=== PATIENT | female | born 1995 | race Caucasian/White ===

== ENCOUNTER 2020-04-05 12:31 | Inpatient (IN) | payer BC, MEDICAID ==
[2020-04-11] MEDS ORDERED: RINGERS SOLUTION,LACTATED 1,000 ML IV ONE (08:45)
[2020-04-11] MEDS ORDERED: RINGERS SOLUTION,LACTATED 1,000 ML IV PRN (08:45)
[2020-04-11 09:48] LABS: ABSOLUTE EOSINOPHILS # (AUTO) 0.1 10^3/uL (0.0-0.6); ABSOLUTE LYMPHOCYTES (AUTO) 1.2 10^3/uL (0.5-4.7); ABSOLUTE MONOCYTES (AUTO) 0.7 10^3/uL (0.1-1.4); ABSOLUTE NEUT (AUTO) 6.5 10^3/uL (1.7-8.2); BASOPHILS % (AUTO) 0.3 % (0-2); HEMATOCRIT 29.2 % (36.0-47.0); HEMOGLOBIN 9.9 g/dL (12.0-15.5); LYMPHOCYTES % (AUTO) 14.1 % (13-45); MEAN CORPUSCULAR HEMOGLOBIN 27.5 pg (27.0-33.4); MEAN CORPUSCULAR HGB CONC 33.9 g/dL (32.0-36.0); MEAN CORPUSCULAR VOLUME 81 fl (80-97); MONOCYTES % (AUTO) 8.7 % (3-13); PLATELET COUNT 229 10^3/uL (150-450); RED CELL DISTRIBUTION WIDTH 15.3 % (11.5-14.0); SEGMENTED NEUTROPHILS % (AUTO) 75.9 % (42-78); TOTAL CELLS COUNTED % (AUTO) 100 %; WHITE BLOOD COUNT 8.5 10^3/uL (4.0-10.5)
[2020-04-11] MEDS ORDERED: MISOPROSTOL 0.2 MG TABLET ONE (09:50)
[2020-04-11] MEDS ORDERED: OXYTOCIN 10 UNIT/ML VIAL ONE (09:50)
[2020-04-11] MEDS ORDERED: OXYTOCIN/0.9 % SODIUM CHLORIDE 30 UNIT/500 ML RTUINJ ONE (09:50)
[2020-04-11] MEDS ORDERED: LIDOCAINE 1% INJ-PF (10 MG/ML) 30 ML SDV ONE (09:50)
[2020-04-11 10:01] LABS: APPEARANCE,URINE SLIGHTLY-CLOUDY; BILIRUBIN,URINE NEGATIVE (NEGATIVE); COLOR,URINE YELLOW; GLUCOSE, URINE NEGATIVE (NEGATIVE); KETONES,URINE TRACE mg/dL (NEGATIVE); LEUKOCYTE ESTERASE,URINE SMALL (NEGATIVE); NITRITE,URINE NEGATIVE (NEGATIVE); PROTEIN,URINE NEGATIVE (NEGATIVE); URINE SPECIFIC GRAVITY 1.015; UROBILINOGEN,URINE NEGATIVE mg/dL (<2.0)
[2020-04-11 10:25] LABS: URINE AMPHETAMINES SCREEN NEGATIVE; URINE BARBITURATES SCREEN NEGATIVE; URINE BENZODIAZEPINES SCREEN NEGATIVE; URINE COCAINE SCREEN NEGATIVE; URINE MARIJUANA (THC) SCREEN NEGATIVE; URINE METHADONE SCREEN NEGATIVE; URINE PHENCYCLIDINE SCREEN NEGATIVE
--- NOTE | 2020-04-11 11:13 | Admission Physical ---
Datetime Report Generated by CPN: 04/11/2020 11:12 CURRENT ADMISSION Chief Complaint: Scheduled Induction of Labor Indication for Induction: Postterm Admit Impression : Postterm, Intrauterine ; No Active Labor Admit Plan: Admit to Unit; Initiate Labor Induction Protocol ALLERGIES Medication Allergies: Yes Medication Allergies: Sulfa (Sulfonamide Antibiotics)/SV (04/11/2020) Latex: No Latex Allergies OBSTETRICAL HISTORY EDC: 04/07/2020 00:00 : 1 Para: 0 Term: 0 : 0 SAB: 0 IAB: 0 Ectopic: 0 Livin Cesareans: 0 VBACs: 0 Multiple Births: 0 Gestational Diabetes: No Rh Sensitization: No Incompetent Cervix: No MELISSA: No Infertility: No ART Treatment: No Uterine Anomaly: No IUGR: No Hx Previous C/S: No Macrosomia: No Hx Loss/Stillborn: No PIH: No Hx : No Placenta Previa/Abruption: No Depression/PP Depression: Yes PTL/PROM: No Post Hemorrhage: No Current Procedures: Ultrasound Obstetrical History Comments: G1- current SEE RECORDS Alcohol: No Marijuana : No Cocaine: No Other Illicit Drugs: No Cigarettes: Former Smoker. [id number] MEDICAL HISTORY Diabetes: No Blood Transfusion: No Pulmonary Disease (Asthma, TB): No Breast Disease: No Hypertension: No Supervisor Drying And Softening Surgery: No Heart Disease: No Hosp/Surgery: Yes Autoimmune Disorder: No Anesthetic Complications: No Kidney Disease: No Abnormal Pap Smear: No Neuro/Epilepsy: No Psychiatric Disorders: No Other Medical Diseases: No Hepatitis/Liver Disease: No Significant Family History: No Varicosities/Phlebitis: No Trauma/Violence : No Thyroid Dysfunction: No Medical History Comments: depression, pyelonephritis- 2014, wisdom teeth, INFECTIOUS HISTORY Gonorrhea: No Genital Herpes: No Chlamydia: No Tuberculosis: No Syphilis: No Hepatitis: No HIV/AIDS Exposure: No Rash or Viral Illness: No HPV: No PHYSICAL EXAM General: Normal HEENT: Normal Neurologic: Normal Thyroid: Deferred Heart: Normal Lungs: Normal Breast: Deferred Back: Normal Abdomen: Normal Genitourinary Exam: Normal Extremities: Normal DTRs: Deferred Pelvic Type: Adequate Vital Signs: Reviewed VAGINAL EXAM Dilatation: 4 Effacement: 70 Station: -2 MEMBRANES Membranes: Ruptured Amniotic Fluid Color: Clear FETUS A EGA: 40.4 Monitoring: External US FHR- Baseline: 130 Variability: Minimal - Undetectable to <=5bpm Accelerations: 15X15 Decelerations: None FHR Category: Category I Presentation: Vertex Admit Comment: plans for epidural PLANS FOR LABOR AND DELIVERY Labor and Delivery: None Pain Management: Epidural Feeding Preference: Formula Benefit of Breast Feed Discussed: Yes Circumcision: Yes INFORMED CONSENT Assignment: Ivania Bartholomew MD Signature: with User ID: Tyrel : with User ID: [email or web address]
[2020-04-11] MEDS ORDERED: NALBUPHINE HCL INJ 10 MG/1 ML AMPULE IV ONE (12:39)
[2020-04-11] MEDS ORDERED: PROMETHAZINE HCL INJ 25 MG/1 ML VIAL IV ONE (12:39)
[2020-04-11] MEDS ORDERED: PROMETHAZINE HCL INJ 25 MG/1 ML VIAL ONE (12:41)
[2020-04-11] MEDS ORDERED: NALBUPHINE HCL INJ 10 MG/1 ML AMPULE ONE (12:41)
[2020-04-11] MEDS ORDERED: FENTANYL/BUPIVACAINE/NS/PF 300 MCG/150 ML RTUINJ EPI ONE (13:05)
[2020-04-11] MEDS ORDERED: ROPIVACAINE HCL 0.2% INJ/PF (2 MG/ML) 20 ML SDV ONE (13:05)
[2020-04-11] MEDS ORDERED: EPHEDRINE SULFATE INJ 50 MG/1 ML AMPULE ONE (13:05)
[2020-04-11] MEDS ORDERED: FAMOTIDINE INJ/PF 20 MG/2 ML SDV IV ONE ×2 (18:00→18:01)
[2020-04-11] MEDS ORDERED: ONDANSETRON HCL INJ/PF 4 MG/2 ML SDV ONE (18:19)
[2020-04-11] MEDS ORDERED: AMPICILLIN SOD INJ 2 GM VIAL ONE (21:06)
[2020-04-11] MEDS ORDERED: ACETAMINOPHEN 325 MG TABLET ONE (21:06)
[2020-04-11] MEDS ORDERED: AMPICILLIN SOD INJ 2 GM VIAL IV SCH (21:14)
[2020-04-11] MEDS ORDERED: GENTAMICIN SULFATE INJ 80 MG/2 ML VIAL ONE (21:16)
[2020-04-11] MEDS ORDERED: IBUPROFEN 800 MG TABLET ONE (22:24)
[2020-04-11] MEDS ORDERED: PROMETHAZINE HCL 25 MG TABLET PO PRN (22:37)
[2020-04-11] MEDS ORDERED: DIBUCAINE 1% OINTMENT 28 GM TP PRN (22:37)
[2020-04-11] MEDS ORDERED: GLYCERIN/WITCH HAZEL LEAF 1 EACH MED..WIPE TP PRN (22:37)
[2020-04-11] MEDS ORDERED: PROMETHAZINE HCL 25 MG SUPP.RECT PR PRN (22:37)
[2020-04-11] MEDS ORDERED: MEASLES,MUMPS&RUBELLA VACC/PF 0.5 ML VIAL SUBCUT PRN (22:37)
[2020-04-11] MEDS ORDERED: NA PHOS,M-B/NA PHOS,DI-BA (ADULT) 133 ML ENEMA PR PRN (22:37)
[2020-04-11] MEDS ORDERED: MISOPROSTOL 0.2 MG TABLET PR PRN (22:37)
[2020-04-11] MEDS ORDERED: DIPH/PERTUSS(ACELL)/TETANUS VAC/PF 0.5 ML SYR (>=10YO) IM PRN (22:37)
[2020-04-11] MEDS ORDERED: PROMETHAZINE HCL INJ 25 MG/1 ML VIAL IV PRN (22:37)
[2020-04-11] MEDS ORDERED: ACETAMINOPHEN WITH CODEINE #3 TABLET PO PRN (22:37)
[2020-04-11] MEDS ORDERED: MAGNESIUM HYDROXIDE SUSP 30 ML UDCUP PO PRN (22:37)
[2020-04-11] MEDS ORDERED: DIPHENHYDRAMINE HCL 25 MG CAPSULE PO PRN (22:37)
[2020-04-11] MEDS ORDERED: ZOLPIDEM TARTRATE 5 MG TABLET PO PRN (22:37)
[2020-04-11] MEDS ORDERED: BENZOCAINE/MENTHOL AEROSOL SPRAY 56 ML TOP PRN (22:37)
[2020-04-11] MEDS ORDERED: ACETAMINOPHEN 325 MG TABLET PO PRN (22:37)
[2020-04-11] MEDS ORDERED: PSEUDOEPHEDRINE HCL 30 MG TABLET PO PRN (22:37)
[2020-04-11] MEDS ORDERED: OXYTOCIN/0.9 % SODIUM CHLORIDE 30 UNIT/500 ML RTUINJ IV PRN (22:37)
[2020-04-11] MEDS ORDERED: GENTAMICIN SULFATE INJ 80 MG/2 ML VIAL IV ONE (22:42)
[2020-04-11] MEDS ORDERED: FAMOTIDINE 20 MG TABLET ONE (23:12)
[2020-04-11] MEDS: FAMOTIDINE 20 MG TABLET PO SCH (23:23)
--- NOTE | 2020-04-12 00:25 | Delivery Summary ---
Del Sum A-C Datetime Report Generated by CPN: 04/12/2020 00:24 DELIVERY PERSONNEL DELIVERY PERSONNEL: [id number] Delivery Doctor:: Ivania Bartholomew MD ORNAMENT STAPLER:: Marielos Salcedo CRNA Labor and Delivery Nurse:: Paloma Lara RN Nursery Nurse:: Kamala Brito RN Nursery Nurse:: Quin Sears RN Solar Sales Associate/BILLING ASSOCIATE: Leslie Patton, ST MATERNAL INFORMATION Delivery Anesthesia: Epidural Medications After Delivery: Pitocin 30 Units in 500ml NS/D5W Delivery QBL: 300 Delivery QBL Comment: qbl total 400ml Maternal Complications: Chorioamnionitis; Maternal Fever Provider Comments: VMI delivered in LIANNE presentation with 25sec dystocia due to compound left arm with head. Posterior compound left arm reduced. Shoulders and body delivered immediately after delivery of posterior arm and [place]. infant to maternal abdomen for delayed cord clamping then cord was doubly clamped and cut. Placenta delivered spontaneously intact. True knot noted in cord near baby. FF at U with cytotec 1000mcg per rectum and draining bladder with a straight catheter. 2nd degree perineal laceration repaired in usual fashion. Mother and baby stable upon provider leaving the room LABOR SUMMARY EDC: 04/07/2020 00:00 No. Babies in Womb: 1 Attempted: No Labor Anesthesia: Epidural LABOR INFORMATION Reason for Induction: Post Dates Onset of Labor: 04/11/2020 12:35 Complete Dilatation: 04/11/2020 17:33 Oxytocin: Induction Group B Beta Strep: Negative Antibiotics # of Doses: 1 Antibiotics Time of Last Dose: 04/11/2020 21:14 Name of Antibiotic Given: Ampicillin 2 grams/Gentamycin Steroids Given: None Reason Steroids Not Administered: Not Applicable MEMBRANES Membranes Rupture Method: Artificial Rupture of Membranes: 04/11/2020 11:04 Length of Rupture (hr): 11.12 Amniotic Fluid Color: Clear Amniotic Fluid Amount: Small Amniotic Fluid Odor: None STAGES OF LABOR Stage 1 hr: 4 Stage 1 min: 58 Stage 2 hr: 4 Stage 2 min: 38 Stage 3 hr: 0 Stage 3 min: 5 Total Time in Labor hr: 9 Total Time in Labor min: 41 VAGINAL DELIVERY Laceration #1: Perineal Laceration Extension #1: Second Degree Other Laceration: midline perineal Laceration Repair: Yes Sponge Count Correct: Yes Sharps Count Correct: Yes CSECTION DELIVERY Primary Indication: N/A Secondary Indication: N/A CSection Incidence: N/A Labor: N/A Elective: N/A CSection Incision: N/A BABY A INFORMATION Infant Delivery Date/Time: 04/11/2020 22:11 Method of Delivery: Vaginal Nurse Controlled Delivery: No Born in Route : No : N/A Forceps: N/A Vacuum Extraction: N/A Shoulder Dystocia : No PRESENTATION/POSITION BABY A Presentation: Cephalic Cephalic Presentation: Vertex Vertex Position: Left Occipital Anterior Breech Presentation: N/A PLACENTA INFORMATION BABY A Placenta Delivery Time : 04/11/2020 22:16 Placenta Method of Delivery: Spontaneous Placenta Status: Delivered SCORES BABY A Heart Rate 1 min: >100 bpm Resp Effort 1 min: Good Cry Reflex Irritability 1 min: Cough or Sneeze or Pulls Away Muscle Tone 1 min: Active Motion Color 1 min: Blue/Pale Resuscitation Effort 1 min: Tactile Stimulation SCORE 1 MIN: 8 Heart Rate 5 min: >100 bpm Resp Effort 5 min: Good Cry Reflex Irritability 5 min: Cough or Sneeze or Pulls Away Muscle Tone 5 min: Active Motion Color 5 min: Body [place], Extremities Blue Resuscitation Effort 5 min: Tactile Stimulation SCORE 5 MIN: 9 INFANT INFORMATION BABY A Gestational Age at Delivery: 40.4 Gestational Status: Full Term- 39- 40.6 Weeks Infant Outcome : Liveborn Condition : Stable Infant Sex: Male IDENTIFICATION BABY A Infant Verification Date/Time: 04/11/2020 22:19 ID Band Number: [id number] Mother's Name Verified: Yes RN Verifying Infant: Concepcion Thomas RN Additional Verifying Personnel: K. Chin RN WEIGHT/LENGTH BABY A Birthweight (gm): 4399 Weight (lb): 9 Infant Weight (oz): 11 Length (in): 22.00 Length (cm): 55.88 CORD INFORMATION BABY A No. Cord Vessels: 3 Nuchal Cord : N/A Nuchal Cord- Other: compound hand True Knot: 1 Cord Blood Taken: Yes-For Eval (Mom's Blood Type - or O+) Infant Suction: Mouth; Nose ASSESSMENT BABY A Complications: Decreased Variability Physical Findings at Delivery: Caput Succedaneum; Molding of the Head; Other Physical Findings- Other: Compound left hand; True knot, had stool after delivery Infant Respirations: Appears Normal Skin to Skin: Yes Skin to Skin Time (min): 20 Rail Car Unloader/ALS Called : No Care By: Garrett Sears RN Transferred To: Remains with Mother BABY B INFORMATION : N/A SIGNATURES Signature: with User ID: [email or web address] : I was personally available for consultation and serving as supervising physician for the P.
--- NOTE | 2020-04-12 00:25 | Birth Certificate Data ---
Cert Data Datetime Report Generated by CPN: 04/12/2020 00:24 CERTIFICATE DATA Delivery Provider: Ivania Bartholomew MD (04/11/2020 07:08:Jocelyn Devries RN) 47a. Care: Yes (04/11/2020 07:08:Chloe Alicia RN) 47b. Date of First Visit: 09/21/2019 00:00 (04/11/2020 07:08:Chloe Alicia RN) 47c. Date of Last Visit: 04/10/2020 00:00 (04/11/2020 07:08:Chloe Alicia RN) 47d. Number of Visits: 12 (04/11/2020 07:08:Chloe Alicia RN) 48a. Number of Prev Live Births: 0 (04/11/2020 07:08:Chloe Alicia RN) 48b. Now Livin (04/11/2020 07:08:Chloe Alicia RN) 48c. Live Births Now : 0 (04/11/2020 07:08:QS system process) 48e. Losses: 0 (04/11/2020 07:08:Chloe Alicia RN) RISK FACTORS IN THIS 49a. Diabetes: No (04/11/2020 07:08:Chloe Alicia RN) 49b. Hypertension: No (04/11/2020 07:08:Chloe Alicia RN) 49c. Previous Births: 0 (04/11/2020 07:08:Chloe Alicia RN) 49d. Stillborns: No (04/11/2020 07:08:Chloe Alicia RN) 49d. IUGR: No (04/11/2020 07:08:Vane Faustin RN) 49e. Infertility Treatment: No (04/11/2020 07:08:Vane Faustin RN) 49f. Previous Cesareans: 0 (04/11/2020 07:08:Chloe Alicia RN) Mother's Height 50b. Height Inches: 64 (04/11/2020 09:24:QS system process) Mother's Weight 51a. Pre- Weight (lbs): 101 (04/11/2020 07:08:Chloe Alicia RN) 51b. Weight at Delivery (lbs): 143 (04/11/2020 09:24:QS system process) 52. Dt Last Normal Menses Began: 06/30/2019 00:00 (04/11/2020 07:08:Chloe Alicia RN) Infections Present/Treated 53a. Gonorrhea: No (04/11/2020 07:08:Chloe Alicia RN) Results this Hospital Visit : Negative (04/11/2020 07:08:Chloe Alicia RN) 53b. Syphilis: No (04/11/2020 07:08:Chloe Alicia RN) Results this Hospital Visit: NONREACTIVE (04/11/2020 09:36:QS system process) 53c. Chlamydia: No (04/11/2020 07:08:Chloe Alicia RN) Results this Hospital Visit: Negative (04/11/2020 07:08:Chloe Alicia RN) 53d. Hepatitis B: No (04/11/2020 07:08:Chloe Alicia RN) Results this Hospital Visit: Negative (04/11/2020 07:08:Chloe Alicia RN) 53e. Hepatitis C: Negative (04/11/2020 07:08:Chloe Alicia RN) 53h. Mother Tested for HBsAG: Yes (04/11/2020 07:08:Chloe Alicia RN) 53i. Date Tested: 09/21/2019 00:00 (04/11/2020 07:08:Chloe Alicia RN) 53j. Test Result: Negative (04/11/2020 07:08:Chloe Alicia RN) Obstetric Procedures 54a, b, c. Obstetric Procedures: Ultrasound (04/11/2020 07:08:Chloe Alicia RN) Cigarette Smoking Cigarette Smoking: Former Smoker. [id number] (04/11/2020 07:08:Chloe Alicia RN) Onset of Labor 56a. PROM >12 Hrs: 11.12 (04/11/2020 07:08:QS system process) 56b. Precipitous Labor <3 Hrs: 9 (04/11/2020 07:08:QS system process) 56c. Prolonged Labor > 20 Hrs: 9 (04/11/2020 07:08:QS system process) 57a. Induction of Labor: Induction (04/11/2020 07:08:Vane Faustin RN) 57c. Non-Vertex Presentation A: Vertex (04/11/2020 07:08:Vane Faustin RN) 57d. Steroids - Lung Mat: None (04/11/2020 07:08:Chloe Alicia RN) 57d. Steroids - Lung Mat: Not Applicable (04/11/2020 07:08:Chloe Alicia RN) 57e. Antibiotics During Labor: 04/11/2020 21:14 (04/11/2020 07:08:Paloma Lara RN) 57g. Moderate/Heavy Meconium: Clear (04/11/2020 11:04:Chloe Alicia RN) 57h. Intolerance of Labor: N/A (04/11/2020 07:08:Jocelyn Devries RN) : N/A (04/11/2020 07:08:Jocelyn Devries RN) 57i. Epidural/Spinal Anesthesia: Epidural (04/11/2020 07:08:Chloe Alicia RN) Method of Delivery 58a. Forceps - Unsuccessful A: N/A (04/11/2020 07:08:Edilma Thomas RN) 58b. Vacuum - Unsuccessful A: N/A (04/11/2020 07:08:Jocelyn Devries RN) 58c. Presentation at 58c. Presentation at - A : Vertex (04/11/2020 07:08:Vane Faustin RN) 58c. Presentation at - A : N/A (04/11/2020 07:08:Vane Faustin RN) 58c. Presentation at - A : Cephalic (04/11/2020 07:08:Edilma Thomas RN) Final Route and Method of Del 58d. Baby A Route/Delivery: Vaginal (04/11/2020 22:11:Paloma Lara RN) 58e. Trial of Labor Attempted: No (04/11/2020 07:08:Chloe Alicia RN) 58e. Trial of Labor Attempted A: N/A (04/11/2020 07:08:Chloe Alicia RN) 58e. Trial of Labor Attempted B: N/A (04/11/2020 07:08:Chloe Alicia RN) Maternal Morbidity 59b. 3rd or 4th Degree Lacs: Perineal (04/11/2020 07:08:Paloma Lara RN) 59b. 3rd or 4th Degree Lacs: midline perineal (04/11/2020 07:08:Paloma Lara RN) Birthweight Baby A: 4399 (04/11/2020 07:08:Paloma Lara RN) 60a. Pounds : 9 (04/11/2020 07:08:QS system process) 60b. Ounces: 11 (04/11/2020 07:08:QS system process) 61. GA at Delivery Baby A: 40.4 (04/11/2020 07:08:Vane Faustin RN) : Full Term- 39- 40.6 Weeks (04/11/2020 07:08:QS system process) 62a. 5 Minute Baby A: 9 (04/11/2020 07:08:QS system process)
[2020-04-12] MEDS: AMPICILLIN SODIUM 2 GM in NORMAL SALINE 100 ML IV SCH ×5 (03:30→21:24)
[2020-04-12] MEDS: ESCITALOPRAM OXALATE 10 MG TABLET PO SCH ×2 (03:46→09:06)
[2020-04-12] MEDS ORDERED: AMPICILLIN SOD INJ 2 GM VIAL ONE (03:55)
[2020-04-12] MEDS ORDERED: GENTAMICIN SULFATE 100 MG in DEXTROSE 5%-WATER 100 ML IV ONE (06:00)
[2020-04-12 06:38] LABS: HEMATOCRIT 24.5 % (36.0-47.0); HEMOGLOBIN 8.3 g/dL (12.0-15.5); MEAN CORPUSCULAR HEMOGLOBIN 27.3 pg (27.0-33.4); MEAN CORPUSCULAR HGB CONC 33.9 g/dL (32.0-36.0); MEAN CORPUSCULAR VOLUME 81 fl (80-97); PLATELET COUNT 211 10^3/uL (150-450); RED BLOOD COUNT 3.04 10^6/uL (3.72-5.28); RED CELL DISTRIBUTION WIDTH 15.1 % (11.5-14.0); WHITE BLOOD COUNT 14.9 10^3/uL (4.0-10.5)
[2020-04-12] MEDS ORDERED: GENTAMICIN SULFATE INJ 80 MG/2 ML VIAL IV SCH (06:40)
[2020-04-12] MEDS: IBUPROFEN 800 MG TABLET PO SCH ×3 (06:47→21:25)
[2020-04-12] MEDS ORDERED: GENTAMICIN SULFATE INJ 80 MG/2 ML VIAL ONE ×2 (08:44→08:56)
[2020-04-12] MEDS: PRENATAL VITAMIN W DHA CAPSULE PO SCH (09:06)
[2020-04-12] MEDS: SENNOSIDES/DOCUSATE 8.6-50 MG 1 EACH TABLET PO SCH (09:06)
[2020-04-12] MEDS: DOCUSATE SODIUM 100 MG CAPSULE PO SCH ×2 (09:06→18:38)
[2020-04-12] MEDS: FAMOTIDINE 20 MG TABLET PO SCH ×2 (09:07→21:54)
[2020-04-12] MEDS: FERROUS SULFATE 325 MG TABLET PO SCH ×2 (09:08→18:38)
[2020-04-12] MEDS ORDERED: FERROUS SULFATE 325 MG TABLET PO ONE (09:13)
[2020-04-12] MEDS: ACETAMINOPHEN WITH CODEINE #3 TABLET PO PRN ×3 (11:16→21:25)
--- NOTE | 2020-04-12 13:02 | PDOC PROGRESS REPORT ---
Subjective-OB Progress Note for:: 04/12/20 Subjective: Pt doing well, no concerns. She reports light bleeding, reg diet and voiding w/o difficulty. C/o talibone pain. Physical Exam (OB) Vital Signs: Temp Pulse Resp BP Pulse Ox 98.7 F 92 18 98/56 L 100 04/12/20 08:22 04/12/20 08:22 04/12/20 08:22 04/12/20 08:22 04/12/20 08:22 Intake & Output 04/11/20 04/12/20 04/13/20 06:59 06:59 06:59 Intake Total 100 Output Total 400 Balance -300 Weight 65.1 kg - PIH/Pre-Eclampsia DTR's: 2 + Clonus: Negative Headache: Absent Epigastric Pain: No Visual Changes: No - Maternal Morbidity 59. Maternal Morbidity (serious complications experinced by the mother associated with labor and delivery: None of the above - Lochia Lochia Amount: Scant < 10 ml Lochia Color: Rubra/Red - Abdomen Description: Round Fundal Description: Firm, Midline Fundal Height: u/u - u/2 Objective-Diagnostic Laboratory: 04/12/20 06:10 04/12/20 06:10 WBC 14.9 H RBC 3.04 L Hgb 8.3 L Hct 24.5 L MCV 81 MCH 27.3 MCHC 33.9 RDW 15.1 H Plt Count 211 Assessment and Plan(PN) - Assessment and Plan (1) Chorioamnionitis Qualifiers: Fetus number: single or unspecified fetus Trimester: third trimester Qualified Code(s): O41.1230 - Chorioamnionitis, third trimester, not applicable or unspecified Is this a current diagnosis for this admission?: Yes (2) Encounter for induction of labor Is this a current diagnosis for this admission?: Yes (3) Obstetrical laceration, second degree Is this a current diagnosis for this admission?: Yes - Time Spent with Patient Time with patient: Less than 15 minutes Medications reviewed and adjusted accordingly: Yes - Disposition Anticipated Discharge Disposition: Home, Self Care Anticipated Discharge Timeframe: within 24 hours
[2020-04-13] MEDS: AMPICILLIN SODIUM 2 GM in NORMAL SALINE 100 ML IV SCH ×2 (02:43→08:11)
[2020-04-13] MEDS: IBUPROFEN 800 MG TABLET PO SCH ×3 (06:09→21:44)
[2020-04-13] MEDS: FAMOTIDINE 20 MG TABLET PO SCH ×2 (10:24→21:44)
[2020-04-13] MEDS: SENNOSIDES/DOCUSATE 8.6-50 MG 1 EACH TABLET PO SCH (10:24)
[2020-04-13] MEDS: ESCITALOPRAM OXALATE 10 MG TABLET PO SCH (10:24)
[2020-04-13] MEDS: FERROUS SULFATE 325 MG TABLET PO SCH ×2 (10:24→17:38)
[2020-04-13] MEDS: PRENATAL VITAMIN W DHA CAPSULE PO SCH (10:24)
[2020-04-13] MEDS: DOCUSATE SODIUM 100 MG CAPSULE PO SCH ×2 (10:24→17:38)
--- NOTE | 2020-04-13 12:24 | PDOC DISCHARGE SUMMARY ---
Impression - Admit/DC Date/PCP Admission Date/Primary Care Provider: 04/11/20 08:25 RAAD CHANDLER MD Discharge Date: 04/13/20 - Discharge Diagnosis (1) Chorioamnionitis Is this a current diagnosis for this admission?: Yes (2) Encounter for induction of labor Is this a current diagnosis for this admission?: Yes (3) Obstetrical laceration, second degree Is this a current diagnosis for this admission?: Yes - Additional Information Resuscitation Status: Full Code Discharge Diet: Regular Discharge Activity: Balance Activity w/Rest, Pelvic Rest Referrals: RAAD CHANDLER MD [Primary Care Provider] - Prescriptions: Ibuprofen [Motrin 800 mg Tablet] 800 mg PO Q8 #60 tablet Home Medications: Escitalopram Oxalate [Lexapro 10 mg Tablet] 1 tab PO DAILY 04/11/20 Vit,Calc76/Iron/Folic [Prenatabs Rx Tablet] 1 tab PO DAILY 04/11/20 Ibuprofen [Motrin 800 mg Tablet] 800 mg PO Q8 #60 tablet 04/13/20 HPI Gestational Age: 40.4 Reason(s) for Admission: Induction of Labor Procedures: NST Intrapartum Procedure(s): Spontaneous Vaginal Delivery Complication(s): Laceration-Perineal Laceration-Degree: 2nd Hospital Course 59. Maternal Morbidity (serious complications experinced by the mother associated with labor and delivery: None of the above Results Laboratory Results: WBC 14.9 10^3/uL (4.0-10.5) H 04/12/20 06:10 RBC 3.04 10^6/uL (3.72-5.28) L 04/12/20 06:10 Hgb 8.3 g/dL (12.0-15.5) L 04/12/20 06:10 Hct 24.5 % (36.0-47.0) L 04/12/20 06:10 MCV 81 fl (80-97) 04/12/20 06:10 MCH 27.3 pg (27.0-33.4) 04/12/20 06:10 MCHC 33.9 g/dL (32.0-36.0) 04/12/20 06:10 RDW 15.1 % (11.5-14.0) H 04/12/20 06:10 Plt Count 211 10^3/uL (150-450) 04/12/20 06:10 Lymph % (Auto) 14.1 % (13-45) 04/11/20 09:36 [place] % (Auto) 8.7 % (3-13) 04/11/20 09:36 Eos % (Auto) 1.0 % (0-6) 04/11/20 09:36 Baso % (Auto) 0.3 % (0-2) 04/11/20 09:36 Absolute Neuts (auto) 6.5 10^3/uL (1.7-8.2) 04/11/20 09:36 Absolute Lymphs (auto) 1.2 10^3/uL (0.5-4.7) 04/11/20 09:36 Absolute Monos (auto) 0.7 10^3/uL (0.1-1.4) 04/11/20 09:36 Absolute Eos (auto) 0.1 10^3/uL (0.0-0.6) 04/11/20 09:36 Absolute Basos (auto) 0.0 10^3/uL (0.0-0.2) 04/11/20 09:36 Seg Neutrophils % 75.9 % (42-78) 04/11/20 09:36 Urine Color YELLOW 04/11/20 08:30 Urine Appearance SLIGHTLY-CLOUDY 04/11/20 08:30 Urine pH 6.0 (5.0-9.0) 04/11/20 08:30 Ur Specific [place] 1.015 04/11/20 08:30 Urine Protein NEGATIVE mg/dL (NEGATIVE) 04/11/20 08:30 Urine Glucose (UA) NEGATIVE mg/dL (NEGATIVE) 04/11/20 08:30 Urine Ketones TRACE mg/dL (NEGATIVE) H 04/11/20 08:30 Urine Blood MODERATE (NEGATIVE) H 04/11/20 08:30 Urine Nitrite NEGATIVE (NEGATIVE) 04/11/20 08:30 Urine Bilirubin NEGATIVE (NEGATIVE) 04/11/20 08:30 Urine Urobilinogen NEGATIVE mg/dL (<2.0) 04/11/20 08:30 Ur Leukocyte Esterase SMALL (NEGATIVE) H 04/11/20 08:30 Urine Ascorbic Acid NEGATIVE (NEGATIVE) 04/11/20 08:30 Urine Opiates Screen NEGATIVE 11/06/20 08:30 Urine Methadone Screen NEGATIVE 04/11/20 08:30 Ur Barbiturates Screen NEGATIVE 04/11/20 08:30 Ur Phencyclidine Scrn NEGATIVE 04/11/20 08:30 Ur Amphetamines Screen NEGATIVE 04/11/20 08:30 U Benzodiazepines Scrn NEGATIVE 04/11/20 08:30 Urine Cocaine Screen NEGATIVE 04/11/20 08:30 U Marijuana (THC) Screen NEGATIVE 04/11/20 08:30 RPR NONREACTIVE (NONREACTIVE) 04/11/20 09:36 Blood Type O POSITIVE 04/11/20 09:36 Antibody Screen NEGATIVE 04/11/20 09:36 Plan Plan of Treatment: f/u at [facility] 4 wks Time Spent: Less than 30 Minutes
[2020-04-14] MEDS: IBUPROFEN 800 MG TABLET PO SCH (05:43)
[2020-04-14 08:22] VITALS: BP 104/67
--- NOTE | 2020-04-14 08:45 | PDOC PROGRESS REPORT ---
Subjective-OB Progress Note for:: 04/14/20 Subjective: Doing well, baby in room, Dr. Puente checking baby, bottle feeding, feeling good, ready for discharge Physical Exam (OB) Vital Signs: Temp Pulse Resp BP Pulse Ox 98.1 F 80 16 104/67 100 04/14/20 08:06 04/14/20 07:29 04/14/20 07:29 04/14/20 07:29 04/14/20 07:29 Intake & Output 04/13/20 04/14/20 04/15/20 06:59 06:59 06:59 Intake Total 500 100 Balance 500 100 - PIH/Pre-Eclampsia DTR's: 2 + Clonus: Negative Headache: Absent Epigastric Pain: No Visual Changes: No - Maternal Morbidity 59. Maternal Morbidity (serious complications experinced by the mother associated with labor and delivery: None of the above - Lochia Lochia Amount: Small 10-25 ml Lochia Color: Rubra/Red - Abdomen Description: Soft Hernia Present: No Fundal Description: Firm, Midline Fundal Height: u/u - u/2 Objective-Diagnostic Laboratory: 04/12/20 06:10 Assessment and Plan(PN) - Assessment and Plan (1) Macrosomia Is this a current diagnosis for this admission?: Yes (2) Vaginal delivery Is this a current diagnosis for this admission?: Yes (3) Chorioamnionitis Qualifiers: Fetus number: single or unspecified fetus Trimester: third trimester Q ualified Code(s): O41.1230 - Chorioamnionitis, third trimester, not applicable or unspecified Is this a current diagnosis for this admission?: Yes (4) Obstetrical laceration, second degree Is this a current diagnosis for this admission?: Yes (5) Encounter for induction of labor Is this a current diagnosis for this admission?: Yes - Time Spent with Patient Time with patient: Less than 15 minutes Medications reviewed and adjusted accordingly: Yes - Disposition Anticipated Discharge Disposition: Home, Self Care Anticipated Discharge Timeframe: within 24 hours
--- NOTE | 2020-04-14 08:50 | PDOC DISCHARGE SUMMARY ---
Impression - Admit/DC Date/PCP Admission Date/Primary Care Provider: 04/11/20 08:25 RAAD CHANDLER MD Discharge Date: 04/14/20 - Discharge Diagnosis (1) Macrosomia Is this a current diagnosis for this admission?: Yes (2) Vaginal delivery Is this a current diagnosis for this admission?: Yes (3) Chorioamnionitis Is this a current diagnosis for this admission?: Yes (4) Obstetrical laceration, second degree Is this a current diagnosis for this admission?: Yes (5) Encounter for induction of labor Is this a current diagnosis for this admission?: Yes - Additional Information Resuscitation Status: Full Code Discharge Diet: Regular Discharge Activity: Balance Activity w/Rest, Pelvic Rest Referrals: RAAD CHANDLER MD [Primary Care Provider] - Prescriptions: Ibuprofen [Motrin 800 mg Tablet] 800 mg PO Q8 #60 tablet Home Medications: Escitalopram Oxalate [Lexapro 10 mg Tablet] 1 tab PO DAILY 04/11/20 Vit,Calc76/Iron/Folic [Prenatabs Rx Tablet] 1 tab PO DAILY 04/11/20 Ibuprofen [Motrin 800 mg Tablet] 800 mg PO Q8 #60 tablet 04/13/20 HPI Gestational Age: 40.4 Reason(s) for Admission: Induction of Labor Procedures: NST, Ultrasound Intrapartum Procedure(s): Spontaneous Vaginal Delivery Intrapartum Procedure Note: chorio Complication(s): Laceration-Perineal Laceration-Degree: 2nd Hospital Course Hospital Course: routine 59. Maternal Morbidity (serious complications experinced by the mother associated with labor and delivery: None of the above Results Laboratory Results: WBC 14.9 10^3/uL (4.0-10.5) H 04/12/20 06:10 RBC 3.04 10^6/uL (3.72-5.28) L 04/12/20 06:10 Hgb 8.3 g/dL (12.0-15.5) L 04/12/20 06:10 Hct 24.5 % (36.0-47.0) L 04/12/20 06:10 MCV 81 fl (80-97) 04/12/20 06:10 MCH 27.3 pg (27.0-33.4) 04/12/20 06:10 MCHC 33.9 g/dL (32.0-36.0) 04/12/20 06:10 RDW 15.1 % (11.5-14.0) H 04/12/20 06:10 Plt Count 211 10^3/uL (150-450) 04/12/20 06:10 Lymph % (Auto) 14.1 % (13-45) 04/11/20 09:36 [place] % (Auto) 8.7 % (3-13) 04/11/20 09:36 Eos % (Auto) 1.0 % (0-6) 04/11/20 09:36 Baso % (Auto) 0.3 % (0-2) 04/11/20 09:36 Absolute Neuts (auto) 6.5 10^3/uL (1.7-8.2) 04/11/20 09:36 Absolute Lymphs (auto) 1.2 10^3/uL (0.5-4.7) 04/11/20 09:36 Absolute Monos (auto) 0.7 10^3/uL (0.1-1.4) 04/11/20 09:36 Absolute Eos (auto) 0.1 10^3/uL (0.0-0.6) 04/11/20 09:36 Absolute Basos (auto) 0.0 10^3/uL (0.0-0.2) 04/11/20 09:36 Seg Neutrophils % 75.9 % (42-78) 04/11/20 09:36 Urine Color YELLOW 04/11/20 08:30 Urine Appearance SLIGHTLY-CLOUDY 04/11/20 08:30 Urine pH 6.0 (5.0-9.0) 04/11/20 08:30 Ur Specific [place] 1.015 04/11/20 08:30 Urine Protein NEGATIVE mg/dL (NEGATIVE) 04/11/20 08:30 Urine Glucose (UA) NEGATIVE mg/dL (NEGATIVE) 04/11/20 08:30 Urine Ketones TRACE mg/dL (NEGATIVE) H 04/11/20 08:30 Urine Blood MODERATE (NEGATIVE) H 04/11/20 08:30 Urine Nitrite NEGATIVE (NEGATIVE) 04/11/20 08:30 Urine Bilirubin NEGATIVE (NEGATIVE) 04/11/20 08:30 Urine Urobilinogen NEGATIVE mg/dL (<2.0) 04/11/20 08:30 Ur Leukocyte Esterase SMALL (NEGATIVE) H 04/11/20 08:30 Urine Ascorbic Acid NEGATIVE (NEGATIVE) 04/11/20 08:30 Urine Opiates Screen NEGATIVE 04/11/20 08:30 Urine Methadone Screen NEGATIVE 04/11/20 08:30 Ur Barbiturates Screen NEGATIVE 04/11/20 08:30 Ur Phencyclidine Scrn NEGATIVE 04/11/20 08:30 Ur Amphetamines Screen NEGATIVE 04/11/20 08:30 U Benzodiazepines Scrn NEGATIVE 04/11/20 08:30 Urine Cocaine Screen NEGATIVE 04/11/20 08:30 U Marijuana (THC) Screen NEGATIVE 04/11/20 08:30 RPR NONREACTIVE (NONREACTIVE) 04/11/20 09:36 Blood Type O POSITIVE 04/11/20 09:36 Antibody Screen NEGATIVE 04/11/20 09:36 Plan Health Concerns: depression, hx pyelo Plan of Treatment: f/u at [facility] 4 wks, rev S&S to report, has help at home, discussed S&S of depression Goals: routine, no complications Time Spent: Less than 30 Minutes
[2020-04-14] MEDS: FERROUS SULFATE 325 MG TABLET PO SCH (09:29)
[2020-04-14] MEDS: ESCITALOPRAM OXALATE 10 MG TABLET PO SCH (09:29)
[2020-04-14] MEDS: SENNOSIDES/DOCUSATE 8.6-50 MG 1 EACH TABLET PO SCH (09:29)
[2020-04-14] MEDS: PRENATAL VITAMIN W DHA CAPSULE PO SCH (09:29)
[2020-04-14] MEDS: DOCUSATE SODIUM 100 MG CAPSULE PO SCH (09:29)
[2020-04-14] MEDS: FAMOTIDINE 20 MG TABLET PO SCH (09:29)
== END 2020-04-14 13:57 | disposition home or self-care (01) | DRG 805 ==
LOC: LR 04-11 08:25 → 2S 04-12 00:41
PROVIDERS: ADMIT Student in an Organized Health Care Education/Training Program; ATTEND Student in an Organized Health Care Education/Training Program
PROC: 10E0XZZ Delivery of Products of Conception, External Approach (ICD-10-PCS; principal; 2020-04-11)
PROC: 0KQM0ZZ Repair Perineum Muscle, Open Approach (ICD-10-PCS; 2020-04-11)
PROC: 3E033VJ Introduction of Other Hormone into Peripheral Vein, Percutaneous Approach (ICD-10-PCS; 2020-04-11)
PROC: 10907ZC Drainage of Amniotic Fluid, Therapeutic from Products of Conception, Via Natural or Artificial Opening (ICD-10-PCS; 2020-04-11)
DX: O48.0 Post-term pregnancy (principal); O41.1230 Chorioamnionitis, third trimester, not applicable or unspecified; Z37.0 Single live birth; O36.63X0 Maternal care for excessive fetal growth, third trimester, not applicable or unspecified; Z20.828 Contact with and (suspected) exposure to other viral communicable diseases; O70.1 Second degree perineal laceration during delivery; O69.1XX0 Labor and delivery complicated by cord around neck, with compression, not applicable or unspecified; O32.6XX0 Maternal care for compound presentation, not applicable or unspecified; Z3A.40 40 weeks gestation of pregnancy; Z88.2 Allergy status to sulfonamides; Z87.891 Personal history of nicotine dependence
CPT/HCPCS: 1967; 36415; 80307; 81005; 85025; 85027; 86592; 86850; 86900; 86901; J0290; J1580; J2300; J2405; J2550; J2590; J2795; J3010; J3490; J7050; J7060; S0028